=== PATIENT | male | born 1975 | race African-American/Black ===

== ENCOUNTER 2017-04-09 09:51 | Day surgery (SDC) | END 2017-04-09 21:31 | disposition home or self-care (01) | DX: K29.30 Chronic superficial gastritis without bleeding (principal); D12.4 Benign neoplasm of descending colon; K62.1 Rectal polyp; K57.30 Diverticulosis of large intestine without perforation or abscess without bleeding | CPT/HCPCS: 43239; 45385; 88305; 88312; J2250; J3010 ==